=== PATIENT | male | born 1965 | race Caucasian/White ===

== ENCOUNTER 2017-08-21 13:29 | Emergency (ER) | payer OTHER ==
[~2017-08-21] VITALS: Ht 177.8 cm; Wt 83.0 kg
[~2017-08-21 13:29] MED LIST: CEPH500; HYDR-3533 PO
[2017-08-21 13:58] VITALS: BP 128/73; PULSE 93; RESP 18; TEMP 97.9; O2SAT 99
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
[2017-08-21] MEDS ORDERED: CEPH-460 PO (14:45)
[2017-08-21] MEDS ORDERED: DICL75TA PO (14:45)
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
[2017-08-21 16:28] VITALS: RESP 16; O2SAT 98
[2017-08-21 16:29] VITALS: BP 132/80; PULSE 85; RESP 16; TEMP 97.8; O2SAT 99
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
[2017-08-21 17:21] LABS: AUTOMATED NEUTROPHIL # 3.7 TH/MM3 (1.8-7.7); BASOPHIL # 0.1 TH/MM3 (0-0.2); EOSINOPHIL % 0.4 % (0.0-4.0); HEMATOCRIT 41.7 % (39.0-51.0); HEMOGLOBIN 14.5 GM/DL (13.0-17.0); LYMPH % 33.6 % (9.0-44.0); LYMPHOCYTE # 2.2 TH/MM3 (1.0-4.8); MEAN CELL VOLUME 93.1 FL (80.0-100.0); MEAN CORPUSCULAR HEMOGLOBIN 32.3 PG (27.0-34.0); MEAN CORPUSCULAR HGB CONC 34.7 % (32.0-36.0); MEAN PLATELET VOLUME 8.8 FL (7.0-11.0); MONO % 6.8 % (0.0-8.0); MONOCYTE # 0.4 TH/MM3 (0-0.9); NEUT % 58.2 % (16.0-70.0); PLATELET COUNT 101 TH/MM3 (150-450); RED BLOOD COUNT 4.48 MIL/MM3 (4.50-5.90); RED CELL DISTRIBUTION WIDTH 14.1 % (11.6-17.2); WHITE BLOOD COUNT 6.4 TH/MM3 (4.0-11.0)
[2017-08-21 17:36] LABS: BICARBONATE 26.4 MEQ/L (21.0-32.0); CALCIUM 7.9 MG/DL (8.5-10.1); CREATININE 0.76 MG/DL (0.60-1.30); MAGNESIUM 1.9 MG/DL (1.5-2.5)
[2017-08-21 17:42] LABS: INTERNATIONAL NORMALIZED RATIO 1.2 RATIO; PROTHROMBIN TIME - PATIENT 12.4 SEC (9.8-11.6)
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
[2017-08-21] MEDS ORDERED: GADODIAMIDE PF 287 MG/ML 5 ML VIAL (for RAD MRI) IV PUSH ONE (18:39)
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
== END 2017-08-21 19:43 ==
LOC: NEDAMB 13:29 → NEPC 19:43
DX: S00.12XA Contusion of left eyelid and periocular area, initial encounter (principal); M25.531 Pain in right wrist; Y09 Assault by unspecified means; Z72.0 Tobacco use
CPT/HCPCS: 70450; 70486; 70553; 71046; 73100; 80048; 83735; 85025; 85610; 85730; 99285; A9579

== ENCOUNTER 2018-02-25 19:55 | Inpatient (IN) ==
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
[2018-02-25] MEDS ORDERED: Naloxone Inj 0.4 MG/ML Vial IV.PUSH PRN (21:15)
[2018-02-25] MEDS ORDERED: Morphine Inj 30 MG/30 ML PCA.VIAL PCA PRN (21:15)
[2018-02-25 21:52] LABS: Baso % (Auto) 0.5 % (0.0-2.0); Eos % (Auto) 0.1 % (0.0-4.0); Hematocrit 26.1 % (39.0-51.0); Hemoglobin 9.1 gm/dL (13.0-17.0); Lymph # (Auto) 0.8 th/mm3 (1.0-4.8); Lymph % (Auto) 8.3 % (9.0-44.0); Mean Corpuscular HGB Conc 34.6 % (32.0-36.0); Mean Corpuscular Hemoglobin 33.5 pg (27.0-34.0); Mean Corpuscular Volume 96.7 fL (80.0-100.0); Mean Platelet Volume 8.8 fL (7.0-11.0); Mono # (Auto) 0.5 th/mm3 (0.0-0.9); Mono % (Auto) 4.7 % (0.0-8.0); Neut # (Auto) 8.8 th/mm3 (1.8-7.7); Neut % (Auto) 86.4 % (16.0-70.0); Platelet Count 115 th/mm3 (150-450); Red Cell Distribution Width 15.8 % (11.6-17.2); White Blood Count 10.2 th/mm3 (4.0-11.0)
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
[2018-02-25] MEDS: Pantoprazole Inj 40 MG Vial IV.PUSH SCH (22:36)
[2018-02-25] MEDS: Sod Chloride 0.9% Inj 1,000 ML IV.CONT SCH (22:36)
[2018-02-25] MEDS: Multivitamin Inj 10 ML, Thiamine Inj 100 MG, Folic Acid Inj 1 MG in Sodium Chlor 0.9% I... IV.SIG SCH (23:19)
[2018-02-26 00:35] LABS: Alanine Aminotransferase 104 U/L (12-78); Albumin 2.3 g/dL (3.4-5.0); Anion Gap 5 meq/L (5-15); Aspartate Aminotransferase 136 U/L (15-37); Blood Urea Nitrogen 16 mg/dL (7-18); Calcium 7.5 mg/dL (8.5-10.1); Carbon Dioxide 25.7 meq/L (21.0-32.0); Chloride 115 meq/L (98-107); Glomerular Filtration Rate 88 mL/min (>89); Glucose,Random 120 mg/dL (74-106); Potassium 4.5 meq/L (3.5-5.1); Sodium 146 meq/L (136-145)
[2018-02-26 00:37] LABS: Alkaline Phosphatase 166 U/L (45-117); Total Protein 6.4 g/dL (6.4-8.2)
[2018-02-26] MEDS ORDERED: Chlorhexidine Gluconate 2% 1 Pack (2 Cloths) TOPICAL PRN (04:00)
[2018-02-26] MEDS: Chlorhexidine Gluconate 2% 1 Pack (2 Cloths) TOPICAL SCH (04:11)
[2018-02-26 04:23] LABS: Baso # (Auto) 0.1 th/mm3 (0.0-0.2); Baso % (Auto) 0.6 % (0.0-2.0); Eos % (Auto) 0.1 % (0.0-4.0); Hematocrit 22.6 % (39.0-51.0); Hemoglobin 7.8 gm/dL (13.0-17.0); Lymph % (Auto) 21.9 % (9.0-44.0); Mean Corpuscular HGB Conc 34.6 % (32.0-36.0); Mean Corpuscular Hemoglobin 33.2 pg (27.0-34.0); Mean Corpuscular Volume 95.9 fL (80.0-100.0); Mean Platelet Volume 8.5 fL (7.0-11.0); Mono # (Auto) 0.7 th/mm3 (0.0-0.9); Mono % (Auto) 8.1 % (0.0-8.0); Neut # (Auto) 6.2 th/mm3 (1.8-7.7); Neut % (Auto) 69.3 % (16.0-70.0); Platelet Count 93 th/mm3 (150-450); Red Blood Count 2.36 mil/mm3 (4.50-5.90); Red Cell Distribution Width 15.9 % (11.6-17.2); White Blood Count 8.9 th/mm3 (4.0-11.0)
[2018-02-26 04:34] LABS: INR 1.4 Ratio; Prothrombin Time 14.5 sec (9.8-11.6)
[2018-02-26 04:39] LABS: Alanine Aminotransferase 96 U/L (12-78); Albumin 2.2 g/dL (3.4-5.0); Alkaline Phosphatase 155 U/L (45-117); Anion Gap 7 meq/L (5-15); Aspartate Aminotransferase 125 U/L (15-37); Blood Urea Nitrogen 17 mg/dL (7-18); Calcium 7.1 mg/dL (8.5-10.1); Chloride 115 meq/L (98-107); Glomerular Filtration Rate Greater Than 89 mL/min (>89); Glucose,Random 102 mg/dL (74-106); Potassium 4.4 meq/L (3.5-5.1); Sodium 145 meq/L (136-145); Total Protein 6.1 g/dL (6.4-8.2)
[2018-02-26 05:05] LABS: Platelet Morphology Normal (Normal)
[2018-02-26] MEDS: Sod Chloride 0.9% Inj 1,000 ML IV.CONT SCH ×3 (05:22→23:45)
[2018-02-26] MEDS ORDERED: Sodium Chlor 0.9% Inj 250 ML IV.SIG SCH (07:00)
[2018-02-26] MEDS ORDERED: Lidocaine PF 1% Inj 5 ML Syringe INFILTRATN ONE (12:00)
[2018-02-26] MEDS ORDERED: Labetalol HCl Inj 100 MG/20 ML Vial IV.CONT ONE (12:00)
[2018-02-26] MEDS ORDERED: Neostigmine Inj 5 MG/5 ML Syringe IV.PUSH ONE (12:00)
[2018-02-26] MEDS ORDERED: Succinylcholine Inj 100 MG/5 ML Syringe IV.PUSH ONE (12:00)
[2018-02-26] MEDS ORDERED: Sod Chloride 0.9% Inj 3,000 ML IV.SIG ONE (12:00)
[2018-02-26] MEDS ORDERED: Phenylephrine/NS 1000 MCG/10ML Syringe IV.PUSH ONE (12:00)
[2018-02-26] MEDS ORDERED: Glycopyrrolate Inj 1 MG/5 ML Syringe IV.PUSH ONE (12:00)
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
--- NOTE | 2018-02-26 13:56 | OTSOAPIP ---
RECEIVED OCCUPATIONAL THERAPY ORDERS. ATTEMPTED TO SEE PATIENT, HOWEVER PER RN PLEASE HOLD PATIENT PRESENTED WITH SIGNIFICANT PAIN AND IS POTENTIALLY GOING TO OPERATING ROOM THIS DATE. WILL HOLD FOR TODAY AND FOLLOW UP WITH PATIENT NEXT DAY. INTERDISCIPLINARY COMMUNICATION: REVIEWED ELECTRONIC MEDICAL RECORD, SPOKE WITH RN Therapist: Lianna De La RosaOTR/L Signature on file
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
[2018-02-26] MEDS ORDERED: Heparin - SQ 10,000 UNITS/ML Vial ONE (14:28)
[2018-02-26] MEDS ORDERED: Etomidate Inj 20 MG/10 ML Ampul IV.PUSH ONE (14:31)
[2018-02-26 15:09] LABS: Hepatitits B Surface Antigen Nonreactive (Nonreactive)
[2018-02-26 15:15] LABS: Hepatitis A IgM Antibody Nonreactive (Nonreactive)
[2018-02-26 16:08] LABS: Baso # (Auto) 0.1 th/mm3 (0.0-0.2); Baso % (Auto) 0.8 % (0.0-2.0); Eos # (Auto) 0.1 th/mm3 (0.0-0.4); Eos % (Auto) 2.2 % (0.0-4.0); Hemoglobin 8.2 gm/dL (13.0-17.0); Lymph # (Auto) 1.9 th/mm3 (1.0-4.8); Lymph % (Auto) 28.1 % (9.0-44.0); Mean Corpuscular HGB Conc 34.2 % (32.0-36.0); Mean Corpuscular Volume 93.5 fL (80.0-100.0); Mean Platelet Volume 8.8 fL (7.0-11.0); Mono # (Auto) 0.5 th/mm3 (0.0-0.9); Mono % (Auto) 7.8 % (0.0-8.0); Neut # (Auto) 4.1 th/mm3 (1.8-7.7); Neut % (Auto) 61.1 % (16.0-70.0); Platelet Count 65 th/mm3 (150-450); Red Blood Count 2.57 mil/mm3 (4.50-5.90); Red Cell Distribution Width 19.2 % (11.6-17.2); White Blood Count 6.7 th/mm3 (4.0-11.0)
[2018-02-26 17:02] LABS: ABG PCO2 39 mmHg (38-42); ABG PO2 250 mmHG (61-120)
[2018-02-26 17:08] LABS: Platelet Morphology Normal (Normal)
[2018-02-26] MEDS ORDERED: *Meperidine Inj 25 MG/ML Vial PERIprocedural Use ONLY ONE (17:22)
[2018-02-26] MEDS ORDERED: fentaNYL Citrate Inj 100 MCG/2 ML Ampul ONE (17:30)
[2018-02-26] MEDS: Morphine Inj 4 MG/ML Vial IV.PUSH PRN (18:54)
--- NOTE | 2018-02-26 19:23 | MP ---
cc: Fadi Pickard MD DATE OF OPERATION: 02/26/2018 PREOPERATIVE DIAGNOSIS: Splenic rupture grade IV and V, portal hypertension, a large hemoperitoneum, hypovolemia and hemorrhagic shock, cirrhosis of the liver. POSTOPERATIVE DIAGNOSIS: Splenic rupture grade IV and V, portal hypertension, a large hemoperitoneum, hypovolemia and hemorrhagic shock, cirrhosis of the liver. OPERATIVE PROCEDURE: Exploratory laparotomy, splenectomy, and liver biopsy. SURGEON: Fadi Pickard MD ANESTHESIA: General. ESTIMATED BLOOD LOSS: 700 mL intraoperative and about 3 liters of blood preoperative in the abdomen. DESCRIPTION OF PROCEDURE: The patient was prepped in the usual fashion. A mid abdominal incision made and abdomen entered. Upon the entrance of the abdomen, there was a huge amount of free blood, some of it old, some of it fairly fresh. The patient is actively bleeding from his spleen. This is suctioned off as well as it can be. Bookwalter retractor is positioned and then the left upper quadrant is packed off. Once this is done, area is explored. The patient has a huge spleen consistent with splenomegaly, very firm. The lower portion of the spleen is completely gone. There are pieces of it around the belly and the remainder of the lower pole is devitalized. The upper part of the spleen and lateral aspects of the spleen are still intact. The spleen measures about 15 cm in length. There are massive varices present in the short gastric area in the splenorenal and splenocolic ligament and splenic vein is tortuous and huge as it comes into the spleen. Very carefully first, the short gastrics are circled with right angle clamps tied with 2-0 silks and divided distally and then proximally oversewn with 2-0 Vicryl stick ties along the greater curvature. Once this is completed, the splenorenal ligament is cut. Now, the splenocolic ligament is attended. Again, large varices are present here. These are very carefully divided between Ashwini clamps tied with 0 silk ties and 0 Vicryl stick ties. Finally, spleen is freed up and sharply freed from the retroperitoneum and delivered into the incision. Ashwini clamps applied across the hilum and then spleen is removed. Remainder of the tissue was tied off with 0 Vicryl stick ties. The tail of pancreas observed seems to be okay, somewhat bruised, but not injured otherwise. The area is irrigated with copious amounts of saline. Meticulous hemostasis obtained with more 2-0 Vicryl stick ties and 3-0 silk stick ties. Greater curvature is now run and there are still several varices they are present which are oozing. These are tied off with 2-0 Vicryl stick ties and controlled. It should be noted that of course the patient's fairly significant portal hypertension to venous bleeding is almost under arterial pressure, hence the blood loss, preoperatively and intraoperatively. Abdomen irrigated with about 4 liters of saline and explored in quadrants. Old blood is evacuated from the pelvis, right upper quadrant, left upper quadrant, mid abdomen. Small bowel and large bowel are run. No other abnormalities are found. There is a serosal tear of the small bowel, which was repaired with 3-0 silk stick ties. The abdomen is now irrigated with more saline and 10 flat CONSTANCE placed in the left upper quadrant and some Surgicel powder used to cover the whole area. The patient has a very cirrhotic liver, which is firm, nodular evident from the CAT scan, but now appears to be clearly obvious the patient has severe cirrhosis. Therefore, a small wedge biopsy is obtained, so we would not have to stick the patient. The area is again irrigated again with saline. Meticulous hemostasis obtained. Then, abdomen closed with #1 PDS loop and ramy. The patient tolerated the procedure well. Fadi Pickard MD SJ/ct , 05:40 PM , 05:49 PM NATE
[2018-02-26] MEDS: Pantoprazole Inj 40 MG Vial IV.PUSH SCH (22:50)
[2018-02-26] MEDS: Multivitamin Inj 10 ML, Thiamine Inj 100 MG, Folic Acid Inj 1 MG in Sodium Chlor 0.9% I... IV.SIG SCH (22:53)
[2018-02-27 00:52] LABS: Hematocrit 27.1 % (39.0-51.0); Hemoglobin 9.3 gm/dL (13.0-17.0)
--- NOTE | 2018-02-27 02:52 | XR ---
EXAM DATE: 02/27/2018 2:24 AM EDT AGE/SEX: 52 years / Male INDICATIONS: Shortness of breath. CLINICAL DATA: This is the patient's initial encounter. Patient reports that signs and symptoms have been present for 2 days and indicates a pain score of Nonresponsive. MEDICAL/SURGICAL HISTORY: None. None. COMPARISON: [facility], CT ABDOMEN & PELVIS W CONTRAST, 02/26/2018. . FINDINGS: A single AP view of the chest demonstrates left basilar patchy opacities. Right lung clear. Nasogastr ic tube with tip in stomach. The cardiomediastinal contours are unremarkable. Left lower rib fractur es. Postsurgical changes with drain in left upper quadrant. CONCLUSION: Left basilar patchy densities. Electronically signed by: Michael Hernandez MD 02/27/2018 2:51 AM EDT
[2018-02-27] MEDS: Chlorhexidine Gluconate 2% 1 Pack (2 Cloths) TOPICAL SCH (05:34)
[2018-02-27] MEDS: Sod Chloride 0.9% Inj 1,000 ML IV.CONT SCH ×3 (06:09→16:19)
[2018-02-27 06:14] LABS: Baso % (Auto) 0.1 % (0.0-2.0); Hematocrit 24.3 % (39.0-51.0); Hemoglobin 8.6 gm/dL (13.0-17.0); Lymph # (Auto) 1.4 th/mm3 (1.0-4.8); Lymph % (Auto) 8.2 % (9.0-44.0); Mean Corpuscular HGB Conc 35.2 % (32.0-36.0); Mean Corpuscular Volume 90.8 fL (80.0-100.0); Mean Platelet Volume 8.8 fL (7.0-11.0); Mono # (Auto) 1.1 th/mm3 (0.0-0.9); Mono % (Auto) 6.5 % (0.0-8.0); Neut # (Auto) 14.5 th/mm3 (1.8-7.7); Neut % (Auto) 85.2 % (16.0-70.0); Platelet Count 98 th/mm3 (150-450); Red Blood Count 2.68 mil/mm3 (4.50-5.90); Red Cell Distribution Width 16.6 % (11.6-17.2)
[2018-02-27 06:44] LABS: Alanine Aminotransferase 61 U/L (12-78); Albumin 1.7 g/dL (3.4-5.0); Alkaline Phosphatase 107 U/L (45-117); Anion Gap 7 meq/L (5-15); Aspartate Aminotransferase 76 U/L (15-37); Blood Urea Nitrogen 18 mg/dL (7-18); Carbon Dioxide 22.3 meq/L (21.0-32.0); Chloride 115 meq/L (98-107); Glomerular Filtration Rate Greater Than 89 mL/min (>89); Glucose,Random 114 mg/dL (74-106); Potassium 4.3 meq/L (3.5-5.1); Sodium 144 meq/L (136-145); Total Protein 4.8 g/dL (6.4-8.2)
[2018-02-27 06:54] LABS: Calcium 6.2 mg/dL (8.5-10.1)
[2018-02-27 08:07] LABS: Lymphocytes 4 % (9-44); Monocytes 3 % (0-8); Platelet Morphology Normal (Normal); Tallied Nucleated RBC 1 (0-0)
[2018-02-27] MEDS: Morphine Inj 4 MG/ML Vial IV.PUSH PRN (09:51)
[2018-02-27] MEDS: Mupirocin 2% Nasal Oint Topical Syringe EACH NARE SCH ×2 (10:29→21:23)
[2018-02-27] MEDS ORDERED: HYDROmorphone PF Inj 2 MG/ML Vial IV.PUSH PRN (14:40)
[2018-02-27 15:04] LABS: Hematocrit 23.1 % (39.0-51.0); Hemoglobin 7.7 gm/dL (13.0-17.0)
[2018-02-27] MEDS ORDERED: Sod Chloride 0.9% Inj 1,000 ML IV.SIG SCH (15:30)
[2018-02-27 15:42] LABS: Baso % (Auto) 0.2 % (0.0-2.0); Hematocrit 22.9 % (39.0-51.0); Hemoglobin 7.7 gm/dL (13.0-17.0); Lymph # (Auto) 2.7 th/mm3 (1.0-4.8); Lymph % (Auto) 16.5 % (9.0-44.0); Mean Corpuscular HGB Conc 33.6 % (32.0-36.0); Mean Corpuscular Hemoglobin 31.7 pg (27.0-34.0); Mean Corpuscular Volume 94.4 fL (80.0-100.0); Mean Platelet Volume 9.3 fL (7.0-11.0); Mono # (Auto) 1.3 th/mm3 (0.0-0.9); Mono % (Auto) 7.7 % (0.0-8.0); Neut # (Auto) 12.4 th/mm3 (1.8-7.7); Neut % (Auto) 75.6 % (16.0-70.0); Platelet Count 109 th/mm3 (150-450); Red Blood Count 2.43 mil/mm3 (4.50-5.90); Red Cell Distribution Width 16.7 % (11.6-17.2); White Blood Count 16.4 th/mm3 (4.0-11.0)
--- NOTE | 2018-02-27 15:42 | OTSOAPIP ---
PATIENT IS S/P EXPLORATORY LAPAROTOMY, SPLENECTOMY, AND LIVER BIOPSY 02/26/18. PATIENT WAS APPARENTLY UP AMBULATING EARLIER IN DAY PER REPORT, HOWEVER IN AFTERNOON, ATTEMPTED TO SEE PATIENT AND RN JILLIAN REQUESTED TO PLEASE HOLD PATIENT NOW PRESENTS WITH INCREASED BLEEDING IN STOMACH AND INTO DRAIN. PATIENT IS AWAITING 2 UNITS OF BLOOD. PATIENT IS NOT STABLE AND WILL HOLD THIS DATE. WILL PLAN TO REATTEMPT TOMORROW. INTERDISCIPLINARY COMMUNICATION: REVIEWED ELECTRONIC MEDICAL RECORD, SPOKE WITH RN Therapist: Lianna De La Rosa OTR/Kai Signature on file
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
[2018-02-27] MEDS: Pantoprazole Inj 40 MG Vial IV.PUSH SCH (21:22)
[2018-02-27] MEDS: Multivitamin Inj 10 ML, Thiamine Inj 100 MG, Folic Acid Inj 1 MG in Sodium Chlor 0.9% I... IV.SIG SCH (23:21)
[2018-02-27 23:46] LABS: Hematocrit 24.8 % (39.0-51.0); Hemoglobin 8.3 gm/dL (13.0-17.0); Mean Corpuscular HGB Conc 33.4 % (32.0-36.0); Mean Corpuscular Hemoglobin 30.7 pg (27.0-34.0); Platelet Count 98 th/mm3 (150-450); Red Cell Distribution Width 17.8 % (11.6-17.2); White Blood Count 17.7 th/mm3 (4.0-11.0)
[2018-02-28] MEDS: Chlorhexidine Gluconate 2% 1 Pack (2 Cloths) TOPICAL SCH (05:12)
[2018-02-28 05:54] LABS: Baso % (Auto) 0.2 % (0.0-2.0); Hematocrit 23.4 % (39.0-51.0); Lymph # (Auto) 3.2 th/mm3 (1.0-4.8); Mean Corpuscular HGB Conc 34.4 % (32.0-36.0); Mean Corpuscular Hemoglobin 31.3 pg (27.0-34.0); Mean Corpuscular Volume 90.9 fL (80.0-100.0); Mean Platelet Volume 9.4 fL (7.0-11.0); Neut # (Auto) 14.8 th/mm3 (1.8-7.7); Neut % (Auto) 73.8 % (16.0-70.0); Platelet Count 118 th/mm3 (150-450); Red Blood Count 2.57 mil/mm3 (4.50-5.90); Red Cell Distribution Width 18.1 % (11.6-17.2)
[2018-02-28 06:22] LABS: Albumin 1.8 g/dL (3.4-5.0); Calcium 6.8 mg/dL (8.5-10.1); Carbon Dioxide 21.9 meq/L (21.0-32.0); Potassium 4.7 meq/L (3.5-5.1)
[2018-02-28] MEDS: Sod Chloride 0.9% Inj 1,000 ML IV.CONT SCH ×3 (08:09→22:03)
[2018-02-28 08:17] LABS: Lymphocytes 5 % (9-44); Tallied Nucleated RBC 4 (0-0)
[2018-02-28 08:19] LABS: Howell-Jolly Bodies Present
[2018-02-28 08:20] LABS: Dimorphic RBC Present; Platelet Morphology Normal (Normal)
[2018-02-28] MEDS: Mupirocin 2% Nasal Oint Topical Syringe EACH NARE SCH ×2 (08:47→20:07)
[2018-02-28] MEDS: Piperacil/Tazo 3.375 GM Premix 50 ML IV.SIG SCH ×3 (08:47→23:09)
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
[2018-02-28] MEDS: Pantoprazole Inj 40 MG Vial IV.PUSH SCH (21:12)
[2018-03-01] MEDS: Sod Chloride 0.9% Inj 1,000 ML IV.CONT SCH (03:47)
[2018-03-01] MEDS: Chlorhexidine Gluconate 2% 1 Pack (2 Cloths) TOPICAL SCH (03:47)
[2018-03-01 07:28] LABS: Baso # (Auto) 0.1 th/mm3 (0.0-0.2); Baso % (Auto) 0.6 % (0.0-2.0); Eos # (Auto) 0.1 th/mm3 (0.0-0.4); Eos % (Auto) 0.7 % (0.0-4.0); Lymph # (Auto) 3.5 th/mm3 (1.0-4.8); Lymph % (Auto) 18.9 % (9.0-44.0); Mean Corpuscular HGB Conc 32.9 % (32.0-36.0); Mean Corpuscular Hemoglobin 31.5 pg (27.0-34.0); Mean Corpuscular Volume 95.7 fL (80.0-100.0); Mean Platelet Volume 9.2 fL (7.0-11.0); Mono # (Auto) 1.8 th/mm3 (0.0-0.9); Mono % (Auto) 9.7 % (0.0-8.0); Neut # (Auto) 13.1 th/mm3 (1.8-7.7); Neut % (Auto) 70.1 % (16.0-70.0); Platelet Count 134 th/mm3 (150-450); Red Blood Count 1.89 mil/mm3 (4.50-5.90); Red Cell Distribution Width 17.7 % (11.6-17.2); White Blood Count 18.6 th/mm3 (4.0-11.0)
[2018-03-01 07:42] LABS: Albumin 1.5 g/dL (3.4-5.0); Calcium 6.5 mg/dL (8.5-10.1); Carbon Dioxide 22.9 meq/L (21.0-32.0); Potassium 3.8 meq/L (3.5-5.1); Total Protein 4.5 g/dL (6.4-8.2)
[2018-03-01 07:43] LABS: Hematocrit 18.1 % (39.0-51.0)
--- NOTE | 2018-03-01 08:23 | XR ---
EXAM DATE: 03/01/2018 8:08 AM EDT AGE/SEX: 52 years / Male INDICATIONS: Lower left chest pain at lower incision site. CLINICAL DATA: This is the patient's initial encounter. Patient reports that signs and symptoms have been present for 4 - 6 days and indicates a pain score of 4/10. MEDICAL/SURGICAL HISTORY: None. None. COMPARISON: [facility], CHEST 1V SINGLE AP, 02/27/2018. . FINDINGS: There is persistent mild parenchymal opacity at the left lung base. Right lung is stable and grossly clear. Cardiac contours are stable and satisfactory. There is been interval removal of a nasogastric tube. CONCLUSION: Persistent left base infiltrate Electronically signed by: Desmond Knight MD 03/01/2018 8:21 AM EDT
[2018-03-01 08:54] LABS: Eosinophils 1 % (0-4); Lymphocytes 10 % (9-44); Monocytes 4 % (0-8); Myelocytes 1 % (0-0); Tallied Nucleated RBC 18 (0-0)
[2018-03-01 08:55] LABS: Ovalocytes 1+; Platelet Morphology Normal (Normal); Polychromasia 4.3 % (0.0-1.9)
[2018-03-01] MEDS: Piperacil/Tazo 3.375 GM Premix 50 ML IV.SIG SCH (10:01)
[2018-03-01] MEDS: Mupirocin 2% Nasal Oint Topical Syringe EACH NARE SCH ×2 (10:02→22:20)
[2018-03-01] MEDS: Lidocaine 5% Patch T-DERMAL SCH (10:02)
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
[2018-03-01] MEDS: Pantoprazole Inj 40 MG Vial IV.PUSH SCH (22:20)
[2018-03-02] MEDS: Chlorhexidine Gluconate 2% 1 Pack (2 Cloths) TOPICAL SCH (06:26)
[2018-03-02 06:56] LABS: Hematocrit 24.6 % (39.0-51.0); Hemoglobin 8.2 gm/dL (13.0-17.0)
[2018-03-02] MEDS: Senna/Docusate Sodium 8.6/50 MG Tablet PO SCH ×2 (08:46→21:35)
[2018-03-02] MEDS: Lidocaine 5% Patch T-DERMAL SCH (08:46)
[2018-03-02] MEDS: Mupirocin 2% Nasal Oint Topical Syringe EACH NARE SCH ×2 (08:47→21:35)
[2018-03-02 11:13] LABS: Anion Gap 8 meq/L (5-15); Blood Urea Nitrogen 17 mg/dL (7-18); Calcium 6.5 mg/dL (8.5-10.1); Carbon Dioxide 24.5 meq/L (21.0-32.0); Chloride 106 meq/L (98-107); Glomerular Filtration Rate Greater Than 89 mL/min (>89); Glucose,Random 105 mg/dL (74-106); Potassium 3.4 meq/L (3.5-5.1); Sodium 138 meq/L (136-145)
[2018-03-02 11:27] LABS: Total Protein 4.9 g/dL (6.4-8.2)
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
[2018-03-02 15:54] LABS: INR 1.3 Ratio; Prothrombin Time 13.3 sec (9.8-11.6)
[2018-03-02] MEDS: Acetaminophen 325 MG Tablet PO PRN ×2 (18:06→21:34)
[2018-03-03 04:24] LABS: Baso # (Auto) 0.1 th/mm3 (0.0-0.2); Baso % (Auto) 0.7 % (0.0-2.0); Eos # (Auto) 0.4 th/mm3 (0.0-0.4); Eos % (Auto) 2.1 % (0.0-4.0); Lymph # (Auto) 2.4 th/mm3 (1.0-4.8); Mean Corpuscular HGB Conc 33.2 % (32.0-36.0); Mean Corpuscular Hemoglobin 31.2 pg (27.0-34.0); Mean Platelet Volume 8.8 fL (7.0-11.0); Mono # (Auto) 2.2 th/mm3 (0.0-0.9); Mono % (Auto) 12.9 % (0.0-8.0); Neut # (Auto) 11.9 th/mm3 (1.8-7.7); Neut % (Auto) 70.3 % (16.0-70.0); Platelet Count 172 th/mm3 (150-450); Red Blood Count 2.55 mil/mm3 (4.50-5.90); Red Cell Distribution Width 20.5 % (11.6-17.2); White Blood Count 16.9 th/mm3 (4.0-11.0)
[2018-03-03 04:32] LABS: INR 1.3 Ratio; Prothrombin Time 13.6 sec (9.8-11.6)
[2018-03-03] MEDS: Acetaminophen 325 MG Tablet PO PRN ×4 (05:11→20:39)
[2018-03-03] MEDS ORDERED: Pneumococcal-13 Valent Ped Vacc Inj 0.5 ML Syringe IM ONE (08:20)
[2018-03-03] MEDS ORDERED: [UNRECOGNIZED DRUG - OTHER] IM ONE (08:30)
[2018-03-03 08:42] LABS: Lymphocytes 20 % (9-44); Monocytes 9 % (0-8); Tallied Nucleated RBC 8 (0-0)
[2018-03-03 08:43] LABS: Platelet Estimate Normal (Normal); Platelet Morphology Normal (Normal); Polychromasia 2.6 % (0.0-1.9)
[2018-03-03] MEDS: Mupirocin 2% Nasal Oint Topical Syringe EACH NARE SCH ×2 (09:50→20:39)
[2018-03-03] MEDS: Senna/Docusate Sodium 8.6/50 MG Tablet PO SCH ×2 (09:52→20:39)
[2018-03-03] MEDS: Lidocaine 5% Patch T-DERMAL SCH (09:52)
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
[2018-03-04] MEDS: Acetaminophen 325 MG Tablet PO PRN ×3 (00:57→16:53)
[2018-03-04 04:02] LABS: Hematocrit 24.6 % (39.0-51.0); Hemoglobin 8.3 gm/dL (13.0-17.0)
--- NOTE | 2018-03-04 06:53 | XR ---
EXAM DATE: 03/04/2018 6:47 AM EDT AGE/SEX: 52 years / Male INDICATIONS: Short of breath, pain left and right chest and ribs, abdominal pain CLINICAL DATA: This is the patient's initial encounter. Patient reports that signs and symptoms have been present for 1 week and indicates a pain score of Nonresponsive. MEDICAL/SURGICAL HISTORY: Cirrhosis. Cholelithiasis. lacerated spleen Splenectomy. COMPARISON: [facility] – [place], CHEST 1V SINGLE AP, 03/01/2018. . FINDINGS: A single AP view of the chest demonstrates left basilar infiltrate unchanged the prior study. Right l jason is clear. Tiny left effusion. This is new. No effusion on the right. Heart is normal in size. CONCLUSION: New tiny left effusion. Left lower lobe infiltrate is unchanged. Electronically signed by: Oc Shahid MD 03/04/2018 6:51 AM EDT
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
[2018-03-04] MEDS: Lidocaine 5% Patch T-DERMAL SCH (10:52)
[2018-03-04] MEDS: Senna/Docusate Sodium 8.6/50 MG Tablet PO SCH (10:52)
[2018-03-04 14:31] LABS: Baso # (Auto) 0.1 th/mm3 (0.0-0.2); Baso % (Auto) 0.7 % (0.0-2.0); Eos # (Auto) 0.2 th/mm3 (0.0-0.4); Eos % (Auto) 1.3 % (0.0-4.0); Hematocrit 25.4 % (39.0-51.0); Hemoglobin 8.3 gm/dL (13.0-17.0); Lymph # (Auto) 1.1 th/mm3 (1.0-4.8); Lymph % (Auto) 6.9 % (9.0-44.0); Mean Corpuscular HGB Conc 32.7 % (32.0-36.0); Mean Corpuscular Hemoglobin 30.9 pg (27.0-34.0); Mean Corpuscular Volume 94.4 fL (80.0-100.0); Mean Platelet Volume 9.2 fL (7.0-11.0); Mono % (Auto) 12.3 % (0.0-8.0); Neut # (Auto) 12.6 th/mm3 (1.8-7.7); Neut % (Auto) 78.8 % (16.0-70.0); Platelet Count 228 th/mm3 (150-450); Red Blood Count 2.69 mil/mm3 (4.50-5.90); Red Cell Distribution Width 19.1 % (11.6-17.2); White Blood Count 16.1 th/mm3 (4.0-11.0)
[2018-03-04 15:08] LABS: Lymphocytes 5 % (9-44); Monocytes 8 % (0-8); Tallied Nucleated RBC 3 (0-0)
[2018-03-04 15:09] LABS: Ovalocytes 1+; Platelet Estimate Normal (Normal); Platelet Morphology Normal (Normal); Toxic Granulation 1+
[2018-03-05] MEDS: Acetaminophen 325 MG Tablet PO PRN ×4 (01:44→20:46)
[2018-03-05] MEDS: Senna/Docusate Sodium 8.6/50 MG Tablet PO SCH ×2 (01:46→09:24)
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
[2018-03-05] MEDS: Piperacil/Tazo 3.375 GM Premix 50 ML IV.SIG SCH ×4 (03:23→20:47)
[2018-03-05 03:32] LABS: Clarity,Urine Clear (Clear); Color,Urine Amber (Yellw/Straw); Glucose,Urine (UA) Negative (Negative); Leukocyte Esterase,Urine Negative (Negative); Mucus,Urine Few /lpf (Occasional); Nitrite,Urine Negative (Negative); Specific Gravity,Urine 1.057 (1.002-1.035); Squamous Epithelial Cell,Urine 1 /hpf (0-5); Urobilinogen,Urine 4 or Greater mg/dL (Less than 2)
[2018-03-05 03:38] LABS: Bilirubin,Urine Negative (Negative)
[2018-03-05] MEDS: Lidocaine 5% Patch T-DERMAL SCH (09:25)
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
[2018-03-05] MEDS ORDERED: [UNRECOGNIZED DRUG - OTHER] IM ONE (13:00)
[2018-03-05] MEDS ORDERED: Pneumococcal-13 Valent Ped Vacc Inj 0.5 ML Syringe IM ONE (13:00)
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
[2018-03-06 04:08] LABS: Baso # (Auto) 0.1 th/mm3 (0.0-0.2); Eos # (Auto) 0.5 th/mm3 (0.0-0.4); Eos % (Auto) 4.2 % (0.0-4.0); Hematocrit 24.2 % (39.0-51.0); Hemoglobin 8.4 gm/dL (13.0-17.0); Lymph # (Auto) 1.3 th/mm3 (1.0-4.8); Lymph % (Auto) 10.3 % (9.0-44.0); Mean Corpuscular HGB Conc 34.7 % (32.0-36.0); Mean Corpuscular Hemoglobin 31.9 pg (27.0-34.0); Mean Corpuscular Volume 91.8 fL (80.0-100.0); Mean Platelet Volume 8.9 fL (7.0-11.0); Mono # (Auto) 1.5 th/mm3 (0.0-0.9); Neut # (Auto) 9.3 th/mm3 (1.8-7.7); Neut % (Auto) 72.5 % (16.0-70.0); Platelet Count 266 th/mm3 (150-450); Red Blood Count 2.64 mil/mm3 (4.50-5.90); Red Cell Distribution Width 18.2 % (11.6-17.2); White Blood Count 12.9 th/mm3 (4.0-11.0)
[2018-03-06 04:23] LABS: Anion Gap 6 meq/L (5-15); Blood Urea Nitrogen 11 mg/dL (7-18); Calcium 6.7 mg/dL (8.5-10.1); Carbon Dioxide 26.8 meq/L (21.0-32.0); Chloride 105 meq/L (98-107); Glomerular Filtration Rate Greater Than 89 mL/min (>89); Glucose,Random 74 mg/dL (74-106); Potassium 3.5 meq/L (3.5-5.1); Sodium 138 meq/L (136-145)
[2018-03-06] MEDS: Senna/Docusate Sodium 8.6/50 MG Tablet PO SCH ×3 (04:28→22:36)
[2018-03-06] MEDS: Piperacil/Tazo 3.375 GM Premix 50 ML IV.SIG SCH ×2 (04:31→12:01)
[2018-03-06 04:36] LABS: Total Protein 5.3 g/dL (6.4-8.2)
--- NOTE | 2018-03-06 07:38 | XR ---
EXAM DATE: 03/06/2018 7:21 AM EDT AGE/SEX: 52 years / Male INDICATIONS: Short of breath. CLINICAL DATA: This is the patient's subsequent encounter. Patient reports that signs and symptoms h ave been present for 1 week and indicates a pain score of Nonresponsive. MEDICAL/SURGICAL HISTORY: . Cirrhosis. Cholelithiasis. Lacerated spleen Splenectomy. [place] [facility] [place]2018. . FINDINGS: There is basilar airspace consolidation slightly increased on the left since March 04. Small effusio ns. No pneumothorax. Heart size within normal limits. CONCLUSION: Basilar airspace disease, slightly increased on the left compared with March 04. Electronically signed by: Maldonado Nance MD 03/06/2018 7:36 AM EDT
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
[2018-03-06] MEDS: Lidocaine 5% Patch T-DERMAL SCH (09:57)
[2018-03-06] MEDS: metroNIDAZOLE 500 MG Tablet PO SCH ×2 (12:26→17:24)
[2018-03-06] MEDS: Lactobacillus Acidophilus/L. Spores Tablet PO SCH ×2 (12:26→22:37)
[2018-03-06] MEDS: levoFLOXacin 500 MG Tablet PO SCH (12:26)
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
[2018-03-06] MEDS ORDERED: Ibuprofen 600 MG Tablet PO ONE (21:45)
[2018-03-07 04:38] LABS: Baso # (Auto) 0.1 th/mm3 (0.0-0.2); Eos # (Auto) 0.2 th/mm3 (0.0-0.4); Eos % (Auto) 1.5 % (0.0-4.0); Hematocrit 26.1 % (39.0-51.0); Hemoglobin 8.8 gm/dL (13.0-17.0); Lymph # (Auto) 1.4 th/mm3 (1.0-4.8); Lymph % (Auto) 9.8 % (9.0-44.0); Mean Corpuscular HGB Conc 33.6 % (32.0-36.0); Mean Corpuscular Hemoglobin 30.8 pg (27.0-34.0); Mean Corpuscular Volume 91.7 fL (80.0-100.0); Mean Platelet Volume 8.9 fL (7.0-11.0); Mono # (Auto) 1.6 th/mm3 (0.0-0.9); Mono % (Auto) 11.7 % (0.0-8.0); Neut # (Auto) 10.7 th/mm3 (1.8-7.7); Platelet Count 301 th/mm3 (150-450); Red Blood Count 2.85 mil/mm3 (4.50-5.90); Red Cell Distribution Width 18.2 % (11.6-17.2)
[2018-03-07] MEDS ORDERED: Sucralfate 1 GM Tablet PO PRN (09:02)
[2018-03-07] MEDS: Lactobacillus Acidophilus/L. Spores Tablet PO SCH ×2 (09:16→23:51)
[2018-03-07] MEDS: metroNIDAZOLE 500 MG Tablet PO SCH ×2 (09:16→13:00)
[2018-03-07] MEDS: levoFLOXacin 500 MG Tablet PO SCH (09:17)
[2018-03-07] MEDS: Senna/Docusate Sodium 8.6/50 MG Tablet PO SCH ×2 (09:19→23:51)
[2018-03-07] MEDS: Lidocaine 5% Patch T-DERMAL SCH ×2 (09:19→09:26)
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
[2018-03-07] MEDS: Famotidine 20 MG Tablet PO SCH ×2 (11:02→23:51)
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
[2018-03-07] MEDS: Vancomycin Inj 1,000 MG in Sodium Chlor 0.9% Inj 250 ML IV.SIG SCH (17:45)
[2018-03-08] MEDS: Vancomycin Inj 1,000 MG in Sodium Chlor 0.9% Inj 250 ML IV.SIG SCH ×2 (04:31→18:56)
[2018-03-08] MEDS: Albumin Human 25% Inj 100 ML IV.SIG SCH ×3 (06:07→22:41)
[2018-03-08] MEDS: Lactobacillus Acidophilus/L. Spores Tablet PO SCH ×2 (10:21→22:41)
[2018-03-08] MEDS: Lidocaine 5% Patch T-DERMAL SCH (10:21)
[2018-03-08] MEDS: Senna/Docusate Sodium 8.6/50 MG Tablet PO SCH ×2 (10:21→22:40)
[2018-03-08] MEDS: Famotidine 20 MG Tablet PO SCH ×2 (10:21→22:41)
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
[2018-03-08] MEDS: Acetaminophen 325 MG Tablet PO PRN (17:14)
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
[2018-03-09] MEDS: Vancomycin Inj 1,000 MG in Sodium Chlor 0.9% Inj 250 ML IV.SIG SCH ×2 (04:35→17:43)
[2018-03-09 04:41] LABS: Baso # (Auto) 0.1 th/mm3 (0.0-0.2); Baso % (Auto) 0.9 % (0.0-2.0); Eos # (Auto) 0.4 th/mm3 (0.0-0.4); Eos % (Auto) 3.8 % (0.0-4.0); Hematocrit 24.3 % (39.0-51.0); Lymph # (Auto) 1.4 th/mm3 (1.0-4.8); Lymph % (Auto) 13.2 % (9.0-44.0); Mean Corpuscular HGB Conc 33.1 % (32.0-36.0); Mean Corpuscular Hemoglobin 30.9 pg (27.0-34.0); Mean Corpuscular Volume 93.5 fL (80.0-100.0); Mean Platelet Volume 8.8 fL (7.0-11.0); Mono # (Auto) 0.9 th/mm3 (0.0-0.9); Mono % (Auto) 8.4 % (0.0-8.0); Neut # (Auto) 7.5 th/mm3 (1.8-7.7); Neut % (Auto) 73.7 % (16.0-70.0); Platelet Count 329 th/mm3 (150-450); Red Blood Count 2.59 mil/mm3 (4.50-5.90); Red Cell Distribution Width 18.4 % (11.6-17.2); White Blood Count 10.2 th/mm3 (4.0-11.0)
[2018-03-09 05:11] LABS: Alanine Aminotransferase 38 U/L (12-78); Albumin 1.8 g/dL (3.4-5.0); Alkaline Phosphatase 92 U/L (45-117); Anion Gap 6 meq/L (5-15); Aspartate Aminotransferase 97 U/L (15-37); Blood Urea Nitrogen 9 mg/dL (7-18); Calcium 6.7 mg/dL (8.5-10.1); Carbon Dioxide 26.9 meq/L (21.0-32.0); Chloride 107 meq/L (98-107); Glomerular Filtration Rate Greater Than 89 mL/min (>89); Glucose,Random 83 mg/dL (74-106); Potassium 3.4 meq/L (3.5-5.1); Sodium 140 meq/L (136-145); Total Protein 5.2 g/dL (6.4-8.2)
[2018-03-09] MEDS: Albumin Human 25% Inj 100 ML IV.SIG SCH ×3 (07:15→21:13)
[2018-03-09] MEDS: Lidocaine 5% Patch T-DERMAL SCH (09:07)
[2018-03-09] MEDS: Lactobacillus Acidophilus/L. Spores Tablet PO SCH ×2 (09:07→21:11)
[2018-03-09] MEDS: Famotidine 20 MG Tablet PO SCH ×2 (09:07→21:11)
[2018-03-09] MEDS: Senna/Docusate Sodium 8.6/50 MG Tablet PO SCH ×2 (09:09→21:11)
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
[2018-03-10] MEDS: Vancomycin Inj 1,000 MG in Sodium Chlor 0.9% Inj 250 ML IV.SIG SCH ×2 (04:51→17:26)
[2018-03-10] MEDS: Albumin Human 25% Inj 100 ML IV.SIG SCH (06:45)
[2018-03-10] MEDS: Lidocaine 5% Patch T-DERMAL SCH (08:36)
[2018-03-10] MEDS: Lactobacillus Acidophilus/L. Spores Tablet PO SCH ×2 (08:48→20:16)
[2018-03-10] MEDS: Famotidine 20 MG Tablet PO SCH ×2 (08:48→20:16)
[2018-03-10] MEDS: Senna/Docusate Sodium 8.6/50 MG Tablet PO SCH ×2 (08:49→20:36)
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
[2018-03-10] MEDS: Acetaminophen 325 MG Tablet PO PRN (20:35)
[2018-03-11] MEDS: Vancomycin Inj 1,000 MG in Sodium Chlor 0.9% Inj 250 ML IV.SIG SCH (04:46)
[2018-03-11] MEDS: Lactobacillus Acidophilus/L. Spores Tablet PO SCH (08:36)
[2018-03-11] MEDS: Famotidine 20 MG Tablet PO SCH (08:36)
[2018-03-11] MEDS: Lidocaine 5% Patch T-DERMAL SCH (08:37)
[2018-03-11] MEDS: Senna/Docusate Sodium 8.6/50 MG Tablet PO SCH (08:37)
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
== END 2018-03-11 15:05 | disposition home or self-care (01) ==
LOC: NEPE 19:55 → NEDA 20:12 → N03 22:20 → N05 02-28 22:46
PROVIDERS: ADMIT Surgery; ATTEND Surgery
PROC: SPLCTMY (ICD-10-PCS; 2018-02-26 14:51)